=== PATIENT | male | born 1945 | race Caucasian/White ===

== ENCOUNTER 2016-04-26 22:21 | Inpatient (IN) | payer MEDICARE, BC ==
[2016-04-26] MEDS ORDERED: NALOXONE 0.4 MG/ML 1 ML VIAL IV PRN (23:07)
[2016-04-26] MEDS ORDERED: HYDROmorphone 1 MG/ML 1 ML SYRINGE IV PRN (23:07)
[2016-04-26] MEDS ORDERED: ONDANSETRON 4 MG/2 ML VIAL IVP PRN (23:07)
--- NOTE | 2016-04-26 23:07 | ED ---
General Adult HPI - General Chief complaint: Recheck/Abnormal Lab/Rx Stated complaint: Adominal Pain Time Seen by Provider: 04/26/16 22:43 Source: patient, EMS, RN notes reviewed Mode of arrival: EMS Limitations: no limitations - History of Present Illness Initial comments: Patient is a pleasant 70-year-old male presenting to the emergency department from transfer from [place]. Patient was transferred for surgical and possible interventional radiology care. Patient has had abdominal discomfort for the past week. Patient did have nausea and vomiting however that has resolved. Patient has had intermittent fevers. Patient has had discomfort right lower abdomen. Patient states it did seem to get better and then worse again. Patient has discomfort extending towards the right leg. Discomfort is tolerable at this time. - Related Data Home Medications Medication Instructions Recorded Confirmed Aspirin EC [Ecotrin Low Dose] 81 mg PO DAILY 04/26/16 04/26/16 Levothyroxine Sodium [Synthroid] 50 mcg PO DAILY 04/26/16 04/26/16 Allergies Allergy/AdvReac Type Severity Reaction Status Date / Time Penicillins Allergy Rash/Hives Verified 04/26/16 22:40 Review of Systems ROS Statement: Those systems with pertinent positive or pertinent negative responses have been documented in the HPI. ROS Other: All systems not noted in ROS Statement are negative. Constitutional: Reports: fever, chills Eyes: Denies: eye pain ENT: Denies: ear pain Respiratory: Denies: cough Cardiovascular: Denies: chest pain Endocrine: Denies: fatigue Gastrointestinal: Reports: abdominal pain, nausea, vomiting (Resolved) Genitourinary: Denies: dysuria Musculoskeletal: Denies: back pain Skin: Denies: rash Neurological: Denies: weakness Past Medical History Past Medical History: Hypertension, Thyroid Disorder History of Any Multi-Drug Resistant Organisms: None Reported Past Surgical History: No Surgical Hx Reported Past Psychological History: No Psychological Hx Reported Smoking Status: Never smoker Past Alcohol Use History: None Reported Past Drug Use History: None Reported General Exam Limitations: no limitations General appearance: alert, in no apparent distress Head exam: Present: atraumatic Eye exam: Present: normal appearance, PERRL ENT exam: Present: normal oropharynx Neck exam: Present: normal inspection Respiratory exam: Present: normal lung sounds bilaterally Cardiovascular Exam: Present: regular rate, normal rhythm GI/Abdominal exam: Present: soft, tenderness (Mild tenderness right lower abdomen). Absent: distended, guarding, rebound Extremities exam: Present: normal inspection Neurological exam: Present: alert Psychiatric exam: Present: normal affect, normal mood Skin exam: Absent: rash Course Vital Signs 04/26/16 22:27 Temperature 98.8 F Pulse Rate 84 Respiratory 16 Rate Blood Pressure 139/60 O2 Sat by Pulse 96 Oximetry - Reevaluation(s) Reevaluation #1: 04/26/16 23:06 Chart and lab work and CT results reviewed from [facility]. Patient has been white blood cell count of 16. Patient does not meet Sirs criteria otherwise. Computed tomography scan has concern for abscess in the right lower quadrant up to 6 cm with nonvisualized appendix. Dr. Ivy has been paged for surgical call. 04/26/16 23:07 Patient was started on Cipro and Flagyl. Antibiotics will be continued. Admission orders written. 04/26/16 23:11 Case was discussed with Dr. Church who will review computed tomography scan with radiologist prior to making decision on appropriate further treatment. Disposition Clinical Impression: Abdominal abscess Disposition: ADMITTED IP TO THIS HOSP Condition: Serious Referrals: Nonstaff,Physician [Primary Care Provider] - 1-2 days Time of Disposition: 23:07
[2016-04-27] MEDS: SODIUM CHLORIDE 0.9% 1,000 ML IV SCH ×4 (00:50→23:32)
[2016-04-27 01:05] VITALS: BMI 32.6
[2016-04-27] MEDS: metroNIDAZOLE-NS PMX 500 MG in SALINE 1 100ML.BAG IVPB SCH ×5 (01:13→23:32)
[2016-04-27 07:24] LABS: Basophils % (A) 0 %; CH 28.6; CHCM 32.8; Eosinophils # (A) 0.2 k/uL (0-0.7); Eosinophils % (A) 2 %; HCT 41.1 % (39.0-53.0); HDW 2.36; HGB 13.6 gm/dL (13.0-17.5); Luc # (Auto) 0.18; Luc % (Auto) 1; Lymphocytes # (A) 0.7 k/uL (1.0-4.8); Lymphocytes % (A) 5 %; MCHC 33.1 g/dL (31.0-37.0); MCV 87.7 fL (80.0-100.0); Mean Platelet Volume 6.6; Monocytes # (A) 0.6 k/uL (0-1.0); Monocytes % (A) 4 %; Neutrophils % (A) 87 %; RBC 4.69 m/uL (4.30-5.90); WBC 13.7 k/uL (3.8-10.6); WBC (Perox) 14.25
[2016-04-27] MEDS: LEVOFLOXACIN 750MG-D5W PMX 750 MG in DEXTROSE/WATER 1 150ML.BAG IVPB SCH (07:28)
[2016-04-27 07:41] LABS: ALT 69 U/L (21-72); AST 50 U/L (17-59); Alkaline Phosphatase 94 U/L (38-126); Anion Gap 14 mmol/L; Blood Urea Nitrogen 13 mg/dL (9-20); Calcium 8.3 mg/dL (8.4-10.2); Carbon Dioxide 24 mmol/L (22-30); Chloride 101 mmol/L (98-107); Glucose 92 mg/dL (74-99); Non-African American GFR(MDRD) >60 (>60 ml/min/1.73 sqM); Potassium 5.1 mmol/L (3.5-5.1); Sodium 139 mmol/L (137-145); Total Bilirubin 0.7 mg/dL (0.2-1.3); Total Protein 6.4 g/dL (6.3-8.2)
[2016-04-27] MEDS: PANTOPRAZOLE 40 MG/10 ML VIAL IV SCH (08:25)
[2016-04-27 10:16] LABS: INR 1.2 (<1.1); Partial Thromboplastin Time 23.7 sec (22.0-30.0); Prothrombin Time 11.8 sec (9.0-12.0)
--- NOTE | 2016-04-27 13:00 | HP ---
DATE OF ADMISSION: Chief complaint is abdominal pain and intra-abdominal abscess. HISTORY: Aguila is a 70-year-old man who is usually in good health. On 04/16, he started having some GI complaints later in the day, had some nausea and vomiting. He went to bed and woke up about every hour with repeated vomiting and diarrhea. He did not feel well Sunday, 04/17 but Sunday was doing a little bit better and went to work. he was not having much in the way of appetite that week and may have had a low-grade fever. He said he went in and was seen a couple of times by a physician but did not have any lab or imaging done and so he went to urgent care yesterday and they sent him to the emergency department where he had a CT scan done showing an abscess. He had not had any previous problems with diarrhea, he had not noticed any blood in the stools or dark tarry stools. No weight loss. He has not had a colonoscopy in about 20 years. There is no family history of GI malignancy or inflammatory bowel disease. No one else at home had been ill. His past medical history is positive for hypertension and hypothyroidism. PAST SURGICAL HISTORY: Denies any abdominal surgery. Medications as outpatient include: 1. Aspirin. 2. Synthroid. Allergies include PENICILLINS, which causes a rash or hives. SOCIAL: Lives by himself. No tobacco or alcohol use. FAMILY HISTORY: Negative for GI malignancy or inflammatory bowel disease. REVIEW OF SYSTEMS: Unremarkable except as per chief complaint. PHYSICAL EXAM: Pleasant 70-year-old man. He is in no acute distress. He is alert and oriented x3. He has been afebrile since admission. Pulse is 68, respirations 16, blood pressure is 116/65. His neck is supple. No adenopathy or thyromegaly. Heart is regular rate and rhythm without murmur. Lungs are clear to auscultation. No wheezes, rales, rhonchi, or rubs. Abdomen is soft. Positive bowel sounds. He has got fullness in the right lower quadrant. No real guarding or rebound. No peritoneal signs. Extremities are without pitting edema. LAB: White count is 13,700, hemoglobin 13.6, platelets 334,000. His sodium and potassium are within normal range. BUN and creatinine are not elevated. CT scan of the abdomen and pelvis was reviewed with the radiologist. The appendix is not visualized. There is a complex fluid collection in the right lower quadrant consistent with large abscess and he has noted a large gallstone in the gallbladder along with multiple cysts in the kidneys. ASSESSMENT: 1. Intra-abdominal abscess, likely delayed perforated appendicitis. 2. Cholelithiasis. 3. Hypertension. 4. Hypothyroidism. PLAN: Will discuss the case with the interventional radiologist for attempted percutaneous drainage, then delayed laparoscopic appendectomy if that is successful. Will do DVT and ulcer prophylaxis and further recommendations to follow.
--- NOTE | 2016-04-27 13:35 | CT ---
EXAMINATION TYPE: CT guided abscess drainage DATE OF EXAM: 04/27/2016 12:17 PM COMPARISON: EXAMINATION TYPE: CT guided abscess drainage DATE OF EXAM: 04/27/2016 12:17 PM HISTORY: Abdominal abscess COMPARISON: NONE PROCEDURE: Maximal barrier technique was utilized. The skin over suitable path to the abscess was localized wit h CT and the overlying skin prepped and draped. Lidocaine was used for local anesthesia. A skin fatimah k made with a scalpel. Access was gained using CT guidance with a 21-gauge needle, purulent material returned in the hub of the needle. A 0.018 inch wire was advanced and the access site was upsized, the wire was upsized and subsequently an 8.5-Australian drain was deployed within the abscess cavity and fixed in place. Catheter attached to gravity drainage. No immediate complication. Purulent materia l sent for laboratory analysis and draining into the bag. The patient remained in stable condition. IMPRESSION: STATUS POST CT GUIDED ABSCESS DRAINAGE, MICROBIOLOGY ANALYSIS IS PENDING. THIS PROCEDURE WAS PERFORM ED BY THE UNDERSIGNED. CT DLP: 1105 mGycm Automated exposure control for dose reduction was used.
[2016-04-28] MEDS: metroNIDAZOLE-NS PMX 500 MG in SALINE 1 100ML.BAG IVPB SCH ×4 (05:32→23:46)
[2016-04-28] MEDS: LEVOTHYROXINE 50 MCG TAB PO SCH (05:53)
[2016-04-28] MEDS: LEVOFLOXACIN 750MG-D5W PMX 750 MG in DEXTROSE/WATER 1 150ML.BAG IVPB SCH (06:37)
[2016-04-28 07:24] LABS: CH 28.7; CHCM 32.7; HCT 38.2 % (39.0-53.0); HDW 2.41; HGB 12.4 gm/dL (13.0-17.5); MCH 28.5 pg (25.0-35.0); MCHC 32.4 g/dL (31.0-37.0); Mean Platelet Volume 6.8; RBC 4.35 m/uL (4.30-5.90); WBC 10.6 k/uL (3.8-10.6)
[2016-04-28] MEDS: ASPIRIN 81 MG CHEW PO SCH (08:24)
[2016-04-28] MEDS: LISINOPRIL 20 MG TAB PO SCH (08:24)
[2016-04-28] MEDS: amLODIPine 10 MG TAB PO SCH (08:24)
[2016-04-28] MEDS: PANTOPRAZOLE 40 MG/10 ML VIAL IV SCH (08:25)
[2016-04-28] MEDS: SODIUM CHLORIDE 0.9% 1,000 ML IV SCH ×2 (12:42→18:29)
--- NOTE | 2016-04-28 14:24 | PN ---
DATE OF SERVICE: 04/28/2016 Aguila is seen on rounds. He is status post percutaneous drainage of intra-abdominal abscess. He is having mild discomfort. He is tolerating a diet. No nausea, no vomiting. PHYSICAL EXAM: He has been afebrile. Pulse is 60, respirations 16, blood pressure 123/62. His abdomen is soft. He has fullness in the right lower quadrant without guarding or rebound. The drain is draining mucopurulent material. Cultures were sent. Gram stain showed multiple gram-positive and gram-negative organisms. LAB: His white count is 10,600, hemoglobin is 12.4. ASSESSMENT: Status post percutaneous drainage of abscess, likely due to perforated appendicitis. PLAN: Will continue the IV antibiotics one more day, arrange home health care for checking his drain and irrigating it daily. I will see him in the office next week and I explained to him that although this is likely an acute appendicitis with perforation, there can be other causes so he should have a colonoscopy performed within the next month or so. Then after he is recuperated, we will see about doing a laparoscopy with appendectomy and then possible cholecystectomy, which will be discussed in the office.
[2016-04-29 02:46] VITALS: RESP 16
[2016-04-29] MEDS: SODIUM CHLORIDE 0.9% 1,000 ML IV SCH (05:11)
[2016-04-29] MEDS: metroNIDAZOLE-NS PMX 500 MG in SALINE 1 100ML.BAG IVPB SCH ×2 (05:11→12:50)
[2016-04-29] MEDS: LEVOTHYROXINE 50 MCG TAB PO SCH (06:12)
[2016-04-29] MEDS: LEVOFLOXACIN 750MG-D5W PMX 750 MG in DEXTROSE/WATER 1 150ML.BAG IVPB SCH (06:13)
[2016-04-29 07:25] LABS: CH 28.9; CHCM 32.6; HCT 38.2 % (39.0-53.0); MCHC 31.5 g/dL (31.0-37.0); Mean Platelet Volume 7.3; RBC 4.29 m/uL (4.30-5.90); RDW 12.9 % (11.5-15.5); WBC 10.4 k/uL (3.8-10.6)
[2016-04-29] MEDS: LISINOPRIL 20 MG TAB PO SCH (08:20)
[2016-04-29] MEDS: amLODIPine 10 MG TAB PO SCH (08:20)
[2016-04-29] MEDS: ASPIRIN 81 MG CHEW PO SCH (08:20)
[2016-04-29] MEDS ORDERED: PANTOPRAZOLE 40 MG TABLET PO SCH (09:00)
[2016-04-29 09:47] VITALS: BP 139/68; PULSE 64; TEMP 98.6
--- NOTE | 2016-04-29 12:20 | P.DS ---
Providers Date of admission: 04/26/16 23:07 Expected date of discharge: 04/29/16 Attending physician: Scarlet Ivy Primary care physician: Physician Nonstaff Hospital Course: Patient admitted with lower abdominal abscess. This is thought to be on the basis of appendiceal abscess. His percutaneous drain is functioning properly. His pain is minimal. He is tolerating a diet. He is afebrile. White blood cell count is normal. Plans are underway for him to be discharged today. He will follow-up with Dr. Ivy this coming week. Prescription for antibiotics is provided. Patient Condition at Discharge: Serious Plan - Discharge Summary New Discharge Prescriptions: Ciprofloxacin HCl [Cipro] 500 mg PO Q12HR #28 tablet metroNIDAZOLE [Flagyl] 500 mg PO Q8HR #42 tab Discharge Medication List Aspirin EC [Ecotrin Low Dose] 81 mg PO DAILY 04/26/16 [History] Enalapril [Vasotec] 20 mg PO DAILY 04/26/16 [History] Levothyroxine Sodium [Synthroid] 50 mcg PO DAILY 04/26/16 [History] amLODIPine [Norvasc] 10 mg PO DAILY 04/26/16 [History] Ciprofloxacin HCl [Cipro] 500 mg PO Q12HR #28 tablet 04/28/16 [Rx] metroNIDAZOLE [Flagyl] 500 mg PO Q8HR #42 tab 04/28/16 [Rx] Follow up Appointment(s)/Referral(s): Scarlet Ivy DO [Doctor of Osteopathic Medicine] - 05/04/16 4:15 pm Nonstaff,Physician [Primary Care Provider] - 1-2 days Activity/Diet/Wound Care/Special Instructions: Home Care - [facility] - [phone] You need to have a colonoscopy done in the next 1-2 months. The Drain tube should be irrigated with 10-20ML of NS daily. Call if fever >100.5, increased abdominal pain, nausea or vomiting, or any other concerns. Eat yogurt 2 times a day or take a probiotic daily. Discharge Disposition: HOME WITH HOME HEALTH SERVICES
== END 2016-04-29 13:53 | disposition home health service (06) | DRG 373 ==
LOC: EC 22:21 → 3SUR 23:07
PROVIDERS: ADMIT Surgery; ATTEND Surgery
PROC: 0W9M30Z Drainage of Male Perineum with Drainage Device, Percutaneous Approach (ICD-10-PCS; principal; 2016-04-27)
DX: K35.2 Acute appendicitis with generalized peritonitis (principal); I10 Essential (primary) hypertension; E03.9 Hypothyroidism, unspecified; K80.20 Calculus of gallbladder without cholecystitis without obstruction; Z88.0 Allergy status to penicillin; Z79.82 Long term (current) use of aspirin; Z79.899 Other long term (current) drug therapy
CPT/HCPCS: 75989; 80053; 85025; 85027; 85610; 85730; 87070; 87075; 87077; 87186; 87205; 99285

== ENCOUNTER → 2017-11-30 | Outpatient (CLI) | payer MEDICARE, BC ==
[2017-11-30 13:33] LABS: HCT 47.2 % (39.0-53.0); HGB 15.5 gm/dL (13.0-17.5); MCH 28.5 pg (25.0-35.0); MCHC 32.8 g/dL (31.0-37.0); MCV 87.1 fL (80.0-100.0); Platelet Count 178 k/uL (150-450); RBC 5.42 m/uL (4.30-5.90); RDW 13.9 % (11.5-15.5)
[2017-11-30 13:47] LABS: Potassium 4.9 mmol/L (3.5-5.1)
== END | disposition home or self-care (01) ==
LOC: LABPAT 12:08
PROVIDERS: ATTEND Internal Medicine Interventional Cardiology
DX: Z01.812 Encounter for preprocedural laboratory examination (principal); I10 Essential (primary) hypertension; R94.39 Abnormal result of other cardiovascular function study
CPT/HCPCS: 36415; 80051; 82565; 84520; 85027

== ENCOUNTER 2017-12-10 08:03 | Day surgery (SDC) | payer MEDICARE, BC ==
[2017-12-03 12:04] VITALS: BMI 34.2
[~2017-12-10 08:03] MED LIST: ALPRAZolam 0.25 MG TAB PO PRN; ASPIRIN 325 MG TAB PO ONE; SODIUM CHLORIDE 0.9% 1,000 ML in EMPTY BAG 1 BAG IV ONE
[2017-12-10] MEDS ORDERED: VERAPAMIL 2.5 MG/ML 2 ML AMP ONE (09:15)
[2017-12-10] MEDS ORDERED: LIDOCAINE 1% INJ 10MG/ML (20 ML MDV) ONE (09:15)
[2017-12-10] MEDS ORDERED: diphenhydrAMINE 50 MG/ML 1 ML VIAL ONE (09:17)
[2017-12-10] MEDS ORDERED: MIDAZOLAM 2 MG/2 ML VIAL ONE (09:17)
[2017-12-10] MEDS ORDERED: diphenhydrAMINE 50 MG/ML 1 ML VIAL IVP ONE (09:52)
[2017-12-10] MEDS: MIDAZOLAM 2 MG/2 ML VIAL IV ONE ×2 (09:52→10:24)
[2017-12-10] MEDS ORDERED: SODIUM CHLORIDE 0.9% 1,000 ML IV ONE (09:52)
[2017-12-10] MEDS ORDERED: LIDOCAINE 1% INJ 10MG/ML (20 ML MDV) SQ ONE (09:55)
[2017-12-10] MEDS ORDERED: HEPARIN SODIUM 1,000 UN/ML (10ML VL) ONE (09:59)
[2017-12-10] MEDS ORDERED: fentaNYL (PF) 50 MCG/ML 2 ML AMP ONE (10:02)
[2017-12-10] MEDS ORDERED: HEPARIN SODIUM 1,000 UN/ML (10ML VL) IV ONE (10:02)
[2017-12-10] MEDS ORDERED: VERAPAMIL SYRINGE (5 MG/10 ML) INTRAARTER ONE (10:03)
[2017-12-10] MEDS ORDERED: fentaNYL (PF) 50 MCG/ML 2 ML AMP IV ONE (10:03)
[2017-12-10] MEDS ORDERED: BIVALIRUDIN BOLUS 250 MG/50 ML IV ONE (10:19)
[2017-12-10] MEDS ORDERED: BIVALIRUDIN 250 MG in SODIUM CHLORIDE 0.9% 50 ML IV ONE ×2 (10:19→10:46)
[2017-12-10] MEDS ORDERED: IOPAMIDOL-370 100ML BTL INJ ONE ×2 (10:30→10:55)
[2017-12-10] MEDS ORDERED: NITROGLYCERIN 1000MCG/10ML SYRINGE INTRACORON ONE (10:53)
[2017-12-10] MEDS ORDERED: TICAGRELOR 90 MG TAB PO ONE (10:56)
[2017-12-10] MEDS ORDERED: TICAGRELOR 90 MG TAB ONE (10:58)
[2017-12-10] MEDS ORDERED: RX INFO: IV CONTRAST WAS GIVEN 1 EACH MISC MISCELLANE PRN (11:23)
[2017-12-10] MEDS ORDERED: MAG HYDROX/AL HYDROX/SIMETH 30 ML CUP PO PRN (11:23)
[2017-12-10] MEDS ORDERED: ZOLPIDEM 5 MG TAB PO PRN (11:23)
[2017-12-10] MEDS ORDERED: NITROGLYCERIN SL TABS 0.4 MG TAB SUBLINGUAL PRN (11:23)
[2017-12-10] MEDS ORDERED: ATROPINE SULFATE 0.1 MG/ML 10ML SYRINGE IV PRN (11:23)
[2017-12-10] MEDS ORDERED: SODIUM CHLORIDE 0.9% 1,000 ML IV SCH (11:30)
--- NOTE | 2017-12-10 11:49 | CC ---
CARDIAC CATHETERIZATION REPORT DATE OF SERVICE: 12/10/2017. PROCEDURE: 1. Coronary angiography. 2. PTCA and stenting of mid circumflex with 2 drug-eluting stents. PERFORMED BY: Dr. Cameron Michael. Moderate conscious sedation time was 68 minutes. CLINICAL INFORMATION: Mr. Aguila Knott is a 72-year-old gentleman with a known history of hypertension with recent positive stress test and was advised coronary angiography after due discussion regarding risks, benefits, and options. PROCEDURE NOTE: Under local anesthesia and strict aseptic precautions using a micropuncture technique, a 6-Greenlandic introducer was placed in the right radial artery. I used a JL3.5 and JR4 catheter to perform coronary angiography and then noted that he had a significant lesion in the circumflex as well as the PDA branch of RCA and proceeded to perform intervention of the circumflex vessel in the same setting. LV pressures were not obtained. Following the procedure, a TR band was applied and good hemostasis was secured and saturation of the fingers of the right hand was 93%. PCI PROCEDURE DETAILS: Initially I tried a JL4 and then an XB3.5 catheter and finally switched over to a JL3.5. With a JL3.5, I had a reasonable guide support. A BMW wire was used to cross the lesion. Without predilatation, an 8 mm long 3.0 caliber Xience stent was deployed. This was somewhat oversized. Distal to it, there was still an area of narrowing and this was addressed with a 2.5 caliber 8 mm Xience stent. Excellent angiographic result was achieved. Patient did not have chest pain or EKG changes. He had a significantly abnormal stress echo with a apical lateral ischemia as well. I performed stenting of mid circumflex using 2 drug-eluting stents. Excellent angiographic result was achieved. The sheath was taken out and TR band applied as per protocol. The patient received Angiomax bolus and infusion. He also received 180 mg of Brilinta. He tolerated the procedure well without complications. CORONARY ANGIOGRAPHY FINDINGS: RIGHT CORONARY ARTERY: Technically large dominant vessel. No significant disease in the proximal and midportion. Distally, it bifurcates into PDA and PLV. The PLV is free of significant disease, it gives off 2 smaller branches. PDA is a good caliber, good distribution vessel. At the ostium, there is about a 80% to 90% stenosis which I believe is quite significant. LEFT MAIN CORONARY ARTERY: Short patent vessel that immediately bifurcates into LAD and circumflex. No significant disease in the left main coronary artery. LEFT ANTERIOR DESCENDING CORONARY ARTERY: This vessel has about a 45% lesion in the in the midportion and again another area of 30% to 40% narrowing at the origin of the third diagonal branch. The rest of the vessel has minor diffuse irregularities. No critical lesions are noted in the LAD, but there are 2 tandem lesions of 45% and 40% respectively. The vessel is fairly of good caliber, gives off 3 diagonal branches. The first one is small. The second and third are are fair-sized and several septal branches that are free of significant disease. LEFT POSTERIOR CIRCUMFLEX CORONARY ARTERY: Technically a nondominant vessel gives off a good-sized obtuse marginal that runs laterally. In the midportion, there is an eccentric 80% narrowing. Before the lesion also there is some area of disease and distal to it also there is some haziness. This is also a significant lesion. In the proximal portion, there is about a 40% narrowing but beyond that there is 80% area which I believe is significant. LEFT VENTRICULOGRAM: This was not performed. FINAL IMPRESSION: This patient has an 80% mid circumflex lesion and an 80% ostial PDA lesion of the right coronary artery which is a dominant vessel. The left anterior descending artery has a 45% and 40% mid lesions. RECOMMENDATION: I recommended PCI of circumflex that was performed expeditiously. Two drug-eluting stents were deployed. Excellent angiographic result was achieved. MMODJeremy / IJN: [id number] /
[2017-12-10] MEDS: METOPROLOL TARTRATE 12.5 MG TAB PO SCH (20:40)
[2017-12-10] MEDS ORDERED: amLODIPine 10 MG TAB PO SCH (21:00)
[2017-12-10] MEDS ORDERED: ATORVASTATIN 80 MG TAB PO SCH (21:00)
[2017-12-11] MEDS ORDERED: LEVOTHYROXINE 88 MCG TAB PO SCH (06:30)
[2017-12-11 06:45] LABS: Basophils # (A) 0.1 k/uL (0-0.2); Basophils % (A) 1 %; Eosinophils # (A) 0.4 k/uL (0-0.7); Eosinophils % (A) 5 %; HCT 43.7 % (39.0-53.0); Lymphocytes # (A) 0.9 k/uL (1.0-4.8); Lymphocytes % (A) 11 %; MCH 28.5 pg (25.0-35.0); MCV 88.8 fL (80.0-100.0); Mean Platelet Volume 6.6; Monocytes # (A) 0.5 k/uL (0-1.0); Monocytes % (A) 6 %; Neutrophils # (A) 6.5 k/uL (1.3-7.7); Neutrophils % (A) 76 %; Platelet Count 167 k/uL (150-450); RBC 4.92 m/uL (4.30-5.90); RDW 14.3 % (11.5-15.5); WBC 8.5 k/uL (3.8-10.6)
[2017-12-11 06:58] LABS: Calcium 8.7 mg/dL (8.4-10.2); Potassium 4.3 mmol/L (3.5-5.1)
[2017-12-11 08:11] VITALS: BP 138/76; PULSE 59; RESP 16; TEMP 97
[2017-12-11] MEDS: METOPROLOL TARTRATE 12.5 MG TAB PO SCH (08:16)
--- NOTE | 2017-12-11 08:44 | DS ---
DISCHARGE SUMMARY DATE OF ADMISSION: 12/10/2017. DATE OF DISCHARGE: 12/11/2017. DIAGNOSES: 1. Unstable angina with a positive stress test. 2. Hypertension. 3. Hypercholesterolemia. 4. Mild chronic kidney disease. CLINICAL INFORMATION: Mr. Aguila Knott was seen by me in the office with a positive stress test, advised coronary angiography and PCI. I discussed with him the risks, benefits, options and rationale and he was brought in for the procedure electively. Procedure was performed from right radial approach. He had 80% mid circumflex lesion as well as an ostial PDA lesion of the RCA which was a dominant vessel. He underwent stenting of the circumflex with 2 drug-eluting stents with excellent angiographic result. Because of the contrast administration, I did not do the RCA intervention and this will be staged in about a week after checking renal function. This morning, patient is doing very well. He is asymptomatic. His right radial cath site is clean and dry with a good pulse. His EKG revealed sinus mechanism with left bundle which is his baseline. His labs are good. Creatinine is 1.3, which is almost same as baseline. He has no symptoms. PHYSICAL EXAMINATION: Blood pressure is 120/70. Pulse rate is 54 per minute. S1, S2 heard normally. Lungs are clear. Abdomen and lower extremity exam unchanged. Right radial cath site is clean and dry. The patient will be discharged today after he ambulates. Discharge instructions regarding activity, diet and medications were given. He will be on aspirin and Brilinta. Atorvastatin 80 mg will be added and a sublingual nitroglycerin also will be given. His other medications will be continued. I will see him in the office at 8 am on December 13. MMODL / IJN: [id number] /
[2017-12-11] MEDS ORDERED: LISINOPRIL 20 MG TAB PO SCH (09:00)
[2017-12-11] MEDS ORDERED: TICAGRELOR 90 MG TAB PO SCH (09:00)
[2017-12-11] MEDS ORDERED: ASPIRIN 81 MG PO SCH (09:00)
== END 2017-12-11 09:37 | disposition home or self-care (01) ==
LOC: CATHCVL 08:03 → 6SEL 11:01 → CATHCVL 12-11 09:37
PROVIDERS: ATTEND Internal Medicine Interventional Cardiology
DX: I25.110 Atherosclerotic heart disease of native coronary artery with unstable angina pectoris (principal); I44.7 Left bundle-branch block, unspecified; R00.1 Bradycardia, unspecified; R94.39 Abnormal result of other cardiovascular function study; E78.00 Pure hypercholesterolemia, unspecified; I12.9 Hypertensive chronic kidney disease with stage 1 through stage 4 chronic kidney disease, or unspecified chronic kidney disease; N18.9 Chronic kidney disease, unspecified; E03.9 Hypothyroidism, unspecified; E66.9 Obesity, unspecified; Z68.34 Body mass index [BMI] 34.0-34.9, adult; Z82.49 Family history of ischemic heart disease and other diseases of the circulatory system; Z79.890 Hormone replacement therapy; Z79.899 Other long term (current) drug therapy; Z79.82 Long term (current) use of aspirin; Z88.0 Allergy status to penicillin
CPT/HCPCS: 93454; 80048; 85025; C9600; C1769 ×2; C1887 ×3; C1874; C1894; J2250; J1200; J2001; J3010; J1644; J0583; Q9967

== ENCOUNTER → 2017-12-13 | Outpatient (CLI) | payer MEDICARE, BC ==
[2017-12-13 09:27] LABS: HGB 15.4 gm/dL (13.0-17.5); MCH 28.8 pg (25.0-35.0); MCHC 32.8 g/dL (31.0-37.0); MCV 87.8 fL (80.0-100.0); Mean Platelet Volume 7.1; Platelet Count 183 k/uL (150-450); RBC 5.36 m/uL (4.30-5.90); WBC 9.1 k/uL (3.8-10.6)
[2017-12-13 10:05] LABS: Potassium 4.5 mmol/L (3.5-5.1)
== END | disposition home or self-care (01) ==
LOC: LABWHC1 09:03
PROVIDERS: ATTEND Internal Medicine Interventional Cardiology
DX: I25.10 Atherosclerotic heart disease of native coronary artery without angina pectoris (principal); I10 Essential (primary) hypertension
CPT/HCPCS: 36415; 80048; 85027